=== PATIENT | female | born 1965 | race Caucasian/White ===

== ENCOUNTER 2018-07-11 18:17 | Observation (INO) | payer BC ==
[2018-07-11] MEDS ORDERED: Metoclopramide HCl 10 MG/2 ML VIAL ONE (19:11)
--- NOTE | 2018-07-11 19:19 | RAD ---
EXAM: Chest one view: HISTORY: Right-sided chest wall pain COMPARISON: 06/04/2018 FINDINGS: Monitor leads overlie the chest. Heart size: Within normal limits. The lungs: Clear of acute process. No evidence for pneumonia, pleural effusion, acute edema, or pneumothorax, or other significant acute process. IMPRESSION: No significant acute intrathoracic disease. Stable from prior study.
[2018-07-11 19:32] LABS: #Eosinphils 0.1 thou/uL (0.0-0.7); #Lymphocytes 1.3 thou/uL (1.20-3.40); #Monocytes 0.4 thou/uL (0.11-0.59); #Neutrophils 3.8 thou/uL (1.40-6.50); %Basophils 0.8 % (0.0-1.0); %Eosinophils 1.4 % (0.0-10.0); %Lymphocytes 23.6 % (21.0-51.0); %Monocytes 6.3 % (0.0-10.0); Hemoglobin 11.1 g/dL (12.0-16.0); Mean Corpuscular HGB CONC 32.6 g/dL (32.0-36.0); Mean Corpuscular Hemoglobin 27.9 pg (27.0-31.0); Mean Corpuscular Volume 85.7 fL (78.0-98.0); Mean Platelet Volume 7.9 fL (7.4-10.4); Platelet Count 193 thou/uL (130-400); RBC Distribution Width 13.4 % (11.5-14.5); Red Blood Cell (RBC) Count 3.97 mill/uL (4.20-5.40); White Blood Cell (WBC) Count 5.5 thou/uL (4.8-10.8)
--- NOTE | 2018-07-11 19:43 | CT ---
EXAM: Brain CTWithout contrast: HISTORY: Seizure COMPARISON: None FINDINGS: No focal mass or midline shift. No intra or extra-axial hemorrhage. Sinuses and mastoids are clear of acute process. IMPRESSION: No mass or bleed or other significant acute intracranial process.
[2018-07-11 20:00] LABS: ALT (SGPT) Less than 7 U/L (8-55); AST (SGOT) 10 U/L (5-34); Albumin 2.3 g/dL (3.5-5.0); Alkaline Phosphatase 28 U/L (40-150); Anion Gap 6 mmol/L (10-20); BUN (Urea Nitrogen) 8 mg/dL (9.8-20.1); Bilirubin, Total 0.2 mg/dL (0.2-1.2); CK (CPK) 103 U/L (29-168); Calc. Creatinine Clearance 0 mL/min (70-130); Carbon Dioxide 16 mmol/L (22-29); Chloride 123 mmol/L (98-107); Estimated GFR-MDRD Greater than 90; Globulin 1.3 g/dL (2.4-3.5); Glucose 65 mg/dL (70-105); Lipase 18 U/L (8-78); Protein, Total 3.6 g/dL (6.0-8.3); Sodium 143 mmol/L (136-145)
[2018-07-11 20:10] LABS: Calcium 5.1 mg/dL (7.8-10.44); Potassium 2.4 mmol/L (3.5-5.1)
[2018-07-11] MEDS ORDERED: Potassium Chloride 20 MEQ TAB ONE (20:12)
[2018-07-11] MEDS ORDERED: D5 1/2 NS w/20 mEq KCL 1,000 ML IV SCH (20:15)
[2018-07-11 20:31] LABS: Phosphorus 2.1 mg/dL (2.3-4.7)
[2018-07-11 22:24] LABS: ALT (SGPT) 11 U/L (8-55); AST (SGOT) 12 U/L (5-34); Albumin 4.4 g/dL (3.5-5.0); Alkaline Phosphatase 55 U/L (40-150); Anion Gap 13 mmol/L (10-20); BUN (Urea Nitrogen) 10 mg/dL (9.8-20.1); Bilirubin, Total 0.6 mg/dL (0.2-1.2); Calc. Creatinine Clearance 0 mL/min (70-130); Calcium 9.6 mg/dL (7.8-10.44); Carbon Dioxide 25 mmol/L (22-29); Chloride 108 mmol/L (98-107); Estimated GFR-MDRD 87; Globulin 2.8 g/dL (2.4-3.5); Glucose 99 mg/dL (70-105); Phosphorus 3.1 mg/dL (2.3-4.7); Potassium 4.3 mmol/L (3.5-5.1); Protein, Total 7.2 g/dL (6.0-8.3); Sodium 142 mmol/L (136-145)
[2018-07-11 23:45] LABS: Troponin I 0.012 ng/mL (< 0.028)
[2018-07-12] MEDS ORDERED: Ondansetron ODT 4 MG TAB SL PRN (00:16)
[2018-07-12] MEDS ORDERED: Ondansetron PF 4 MG/2 ML Vial IVP PRN (00:16)
[2018-07-12 01:09] VITALS: BMI 23.6
[2018-07-12] MEDS ORDERED: Lorazepam 2 MG/ML VIAL SLOW IVP PRN (01:13)
[2018-07-12 03:06] LABS: Troponin I 0.011 ng/mL (< 0.028)
[2018-07-12 05:09] LABS: #Basophils 0.1 thou/uL (0.0-0.2); #Eosinphils 0.2 thou/uL (0.0-0.7); #Lymphocytes 2.1 thou/uL (1.20-3.40); #Monocytes 0.9 thou/uL (0.11-0.59); #Neutrophils 5.2 thou/uL (1.40-6.50); %Basophils 0.7 % (0.0-1.0); %Eosinophils 1.9 % (0.0-10.0); %Monocytes 10.3 % (0.0-10.0); %Neutrophils 62.1 % (42.0-75.0); Hemoglobin 12.8 g/dL (12.0-16.0); Mean Corpuscular HGB CONC 33.1 g/dL (32.0-36.0); Mean Corpuscular Hemoglobin 28.2 pg (27.0-31.0); Mean Corpuscular Volume 85.1 fL (78.0-98.0); Mean Platelet Volume 8.3 fL (7.4-10.4); Platelet Count 223 thou/uL (130-400); RBC Distribution Width 13.5 % (11.5-14.5); Red Blood Cell (RBC) Count 4.55 mill/uL (4.20-5.40); White Blood Cell (WBC) Count 8.4 thou/uL (4.8-10.8)
[2018-07-12 05:23] LABS: Anion Gap 12 mmol/L (10-20); BUN (Urea Nitrogen) 10 mg/dL (9.8-20.1); Calc. Creatinine Clearance 98 mL/min (70-130); Calcium 9.1 mg/dL (7.8-10.44); Carbon Dioxide 22 mmol/L (22-29); Chloride 110 mmol/L (98-107); Estimated GFR-MDRD Greater than 90; Glucose 86 mg/dL (70-105); Potassium 3.8 mmol/L (3.5-5.1); Sodium 140 mmol/L (136-145)
[2018-07-12] MEDS ORDERED: levETIRAcetam 500 MG TAB PO SCH ×2 (09:45→21:00)
--- NOTE | 2018-07-12 10:38 | HP ---
REASON FOR ADMISSION: New onset seizure. HISTORY OF PRESENT ILLNESS: Mrs. Olivo is a 53-year-old woman who was brought in to the emergency department yesterday after experiencing a witnessed seizure while at work. The patient does not recall events leading up to her seizure, but states she remembers being at work. 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 The patient is unsure of the length of time the seizure lasted, but is aware that she had been witnessed to fall out of the chair and while lying on the floor, was biting her tongue repeatedly. She is unsure if she experienced any twitching, stiffness, or convulsions of her body. She is unsure how long her postictal state lasted. Denies any nausea or vomiting afterwards according to informations obtained from her coworker who visited last night. The patient states she is not known to have a history of seizures. She is feeling well today and back to her baseline as per patient. Per ED notes, Paramedics found her in postictal state, and she was unresponsive, not oriented to person or place. She was brought in to the ED and upon arrival, was alert and oriented x2, able to answer questions. Her vital signs were normal in the ER. She was noted to have a slight abrasion and swelling to the right lower lip. Laboratory studies were done noting hypokalemia at 2.4 and hypocalcemia of 5.1. She had a 12-lead ECG that showed sinus tachycardia with incomplete left bundle-branch block and ST depression with inversion of T-waves on the lateral leads. ST depression was also noted in the lateral leads. Her potassium was replaced in the ER. The patient was admitted for further workup and management. Of note, she also underwent a chest x-ray in the ER that was negative, and a CT scan of her head, which was unremarkable. The patient was seen in [place] yesterday by her lathe tender for a cardiac stress test to address chest pain and shortness of breath she has been experiencing intermittently for the last few months. She does not have results of this. She states she was diagnosed with takotsubo in the past. In her 30s, she underwent mitral valve repair and is scheduled to undergo an echocardiogram. REVIEW OF SYSTEMS: The patient denies having any issues with headaches or loss of vision. Denies having any vision changes at this present time, but states she recently had her contacts changed due to experiencing moments of blurred vision while at work when looking at the computer screen. Denies any eye pain. Has not had any recent fevers, chills, or sweats. No sore throat or cold-like symptoms. She has had very good appetite and denies experiencing any nausea or vomiting. Denies any abdominal pain or cramping. Has had very normal bowel movements and has not noted any blood in her stool. Denies having any urinary symptoms; however, today has noted frequent urination and is unsure if this was due to fluids given in the ER. She reports having issues with shortness of breath which has been ongoing for the last year associated with intermittent chest pain that occurs sporadically. It tends to happen following a period of activity; however, she states there are moments when she is very active, such as walking 5 miles and does not experience any pain with it. Then, might walk across a parking lot to the store and once inside, then experiences pain, described as tightness in her chest and shortness of breath. She states they can last an hour or be intermittent for a full day, and she does not take anything to help with pain. It tends to settle on its own. She denies any radiation of her pain to her arms or upper jaw. Denies any associated diaphoresis or nausea. Apart from this, the patient has experienced episodes of "an odd sensation" where it feels like something is closing in on her, but is not quite able to describe. She denies any actual tunnel vision or vision disturbances when this happens. She states this is immediately followed by severe nausea causing her to hold her mouth close to avoid vomiting, and this quickly settles after a couple of minutes. She has noted this tends to occur mostly while she was at work, but can happen sporadically. She also describes episodes of intense hypersomnolence without any other associated symptoms. It can happen any time of the day, most noticeable when driving, which causes her to last puller and walk around her car. When at home, she has moments where she falls asleep without realizing it or has intense need to lay down to avoid falling. She denies any mental status changes or paralysis. No paresthesias. No sensory changes. Has not had any rash or skin changes. No pain. No falls or trauma. The patient has not experienced any wheezing. No lower extremity edema. PAST MEDICAL HISTORY: History of takotsubo. PAST SURGICAL HISTORY: Mitral valve repair in her 30s. SOCIAL HISTORY: The patient lives at home and fully independent. Denies any tobacco use. No alcohol use or illicit drug use. FAMILY HISTORY: The patient has a very strong family history of heart disease in her family, but unable to provide details. ALLERGIES: NO KNOWN DRUG ALLERGIES. CURRENT MEDICATIONS: None. PHYSICAL EXAMINATION: GENERAL: The patient appears thin, well developed, and in no acute distress. VITAL SIGNS: Temperature 98.1, pulse 80, respirations 16, O2 saturation 97% on room air, and blood pressure 126/78. HEENT: Normocephalic and atraumatic. Pupils are equal, round, reactive to light. Extraocular movements normal without any nystagmus present. Visual delacruz intact. Oropharynx is clear of any sores or lesions or erythema. The patient was noted to have a small growth on the left lateral side of her tongue, which she states is long-standing and unchanged. No bleeding. No sores. No abnormal color. She has a small abrasion to the left inner lower lip. No active bleeding. No swelling. NECK: Supple without lymphadenopathy. No tenderness. Full range of motion. HEART: Normal S1, S2. LUNGS: Clear to auscultation bilaterally without any wheezes, rales, or rhonchi. ABDOMEN: Soft, nontender, nondistended. Normoactive bowel sounds present. No guarding or rigidity. No renal angle tenderness. EXTREMITIES: No edema present. Full range of motion with power 5/5 in all limbs. Pedal pulses present and equal bilaterally. NEUROLOGIC: Alert and oriented x3. No neuro deficits. Cranial nerves 2 through 12 intact. Facial sensation and movements normal. No tongue deviation. No cerebellar findings. LABORATORY DATA: White blood count 8.4, hemoglobin 12.8, hematocrit 38.7, and platelets 223. Sodium 140; potassium today is 3.8, improved from 2.4; chloride 110; carbon dioxide 22; anion gap 12; BUN 10; creatinine 0.66; GFR greater than 90; blood glucose 86; and calcium 9.1, improved from 5.1. Troponin negative x3. TSH 3.6778. Prolactin done on initial presentation was normal at 21.42. IMAGING DATA: 1. Chest x-ray with no acute intrathoracic abnormalities. 2. CT brain; no abnormal findings. No mass or bleed or other significant acute intracranial process. IMPRESSION AND PLAN: Ms. Olivo is a very pleasant 53-year-old woman who is being admitted for management of the following; 1. New onset seizure, weakness. The patient had this episode while at work and describes unusual episodes as mentioned above that seem to be a possible auras. She has undergone a CT of the brain that was normal. We will request an MRI of the brain and place a consult to Neurology. We will also obtain urinalysis and urine drug screen. 2. Hypersomnolence. The patient potentially experiencing the symptoms associated with narcolepsy, although she only falls fully asleep when at home that she is aware of. May require sleep study as an outpatient. Unclear if this is associated with the seizure episode that she had yesterday. 3. Chest pain and shortness of breath. The patient had a cardiac stress done yesterday and is being followed by Cardiology in [place]. She had abnormal EKG changes noted in the ER with ST depression and T-wave inversion in the lateral leads as well as a left bundle-branch block. Troponins were negative. The patient is without any active chest pain. We will discuss with Dr. Dennison if echocardiogram indicated given history of intermittent shortness of breath, as well as cardiac history/previous mitral valve repair. 4. Gastrointestinal prophylaxis. 5. Deep venous thrombosis prophylaxis with mechanical SCDs. 6. Full code status. Her surrogate decision makers would be her sister, Valentina Mullen, and her daughter, Leena Olivo. The patient's case was discussed with Dr. Dennison who agrees upon care as described above. Job ID: [id number]
[2018-07-12] MEDS ORDERED: Gadobenate Dimeglumine 529 MG/1 ML (20ML VIAL) ONE (10:47)
--- NOTE | 2018-07-12 12:16 | MRI ---
MRI Brain W WO Con: 07/12/2018 9:10 AM CLINICAL HISTORY: New onset seizure one day ago.. COMPARISON: CT head 07/11/2018. FINDINGS: Extra axial spaces: Normal in size and morphology for the patient's age. Ventricular system: Normal in size and morphology for the patient's age. Basal cisterns: Normal. Cerebral parenchyma: Scattered increased T2-weighted signal abnormalities are seen within the region of the periventricular white matter demonstrating corresponding decreased T1 and FLAIR signal intensity and are be related to mild dilated perivascular spaces. There is no evidence of an acute in farction. No abnormal signal intensity is seen in the region of the hippocampal formations bilaterally which demonstrate symmetric and normal morphology bilaterally. There is a focus of increa sed FLAIR T2-weighted signal intensity seen within the subcortical white matter in the left parietal lobe which is of uncertain etiology but of doubtful clinical significance. There is a small focus of susceptibility artifact on gradient echo images seen within the lateral asp ect of the inferior left basal ganglia which demonstrates a tiny punctate focus of enhancement on postcontrast images. This likely represents a small vascular malformation measuring approximately 4 m m. Midline shift: None. Cerebellum: Normal. Brainstem: Normal. Paranasal sinuses:Mild mucosal thickening is present in the right maxillary antrum. Minimal mastoid e ffusions are seen on the right IMPRESSION:No acute intracranial abnormality.
[2018-07-12 15:41] VITALS: BP 127/71; TEMP 97.8
--- NOTE | 2018-07-12 16:19 | CON ---
DATE OF CONSULTATION: 07/12/2018 CONSULTING PHYSICIAN: Hospitalist Service. IMPRESSION: New-onset seizure with prior prodromes of multiple auras. PLAN: 1. MRI of the brain with contrast. 2. Keppra 500 mg twice a day. 3. Office followup. HISTORY OF PRESENT ILLNESS: Ms. Olivo is a 53-year-old woman with a past history of mitral valve disease. She was at work when she suddenly lost consciousness. Witnesses report that she had a tonic-clonic seizure. She has no memory of the events. The next memory that she has is waking up in the emergency room. She had a CT of the brain done, which is unremarkable. Her lab work was also unremarkable. Prior to this, she has had multiple episodes, where she has a sudden uncomfortable wave of sensation associated with some nausea. This may last about 5 seconds or more. None of these were followed by any lapses of awareness. She denies any past history of head injury, meningitis, or encephalitis. She has never had any focal neurologic symptoms prior to this. PAST MEDICAL HISTORY: Mitral valve disease. PAST SURGICAL HISTORY: Mitral valve repair. FAMILY HISTORY: Astrocytoma. ALLERGIES: NONE REPORTED. SOCIAL HISTORY: Unremarkable. REVIEW OF SYSTEMS: A 10-system review of systems is otherwise negative. PHYSICAL EXAMINATION: VITAL SIGNS: Stable. She has been afebrile. HEENT: Pupils are equal and reactive. Conjunctivae are clear. Oropharynx is clear. NECK: Supple. No lymphadenopathy. EXTREMITIES: No cyanosis, clubbing, or edema. NEUROLOGIC: She is alert and appropriate. Her speech is fluent and clear. Cranial nerves are intact. Motor exam shows good strength bilaterally. There is no fix or drift. Sensation is intact to light touch. She can walk independently. No abnormal movements are seen. SUMMARY: This is a middle-aged woman with new-onset of seizure activity with suggestive features of a focal onset. MRI to rule out focal lesion would be appropriate. I would go ahead and start her on Keppra, given the multiple events prior to admission. I will be happy to follow up with her in the office. Job ID: [id number]
[2018-07-12 17:20] LABS: Bilirubin Negative (Negative); Blood, Urine Negative (Negative); Clarity CLOUDY (Clear); Glucose, Urine (Dipstick) Negative (Negative); Leukocyte Negative (Negative); Nitrite Negative (Negative); Protein, Urine (Dipstick) Negative (Neg-Trace); Specific Gravity, Urine 1.023 (1.002-1.036); Urobilinogen 0.2 mg/dL (0.2-1.0)
[2018-07-12 17:22] LABS: Bacteria/HPF None Seen HPF (None Seen); Hyaline Casts/LPF 0-3 HYALINE CAST LPF (0-3 Hyaline); Pathc Cast-AUWi Flag 0.13 (0-2.49); RBC/HPF 0-3 HPF (0-3); Squamous Epithelial 0-3 HPF (0-3); WBC/HPF 0-3 HPF (0-3)
[2018-07-12 17:36] LABS: Urine Culture Reflex No No
[2018-07-12 17:37] LABS: Amphetamine Not Detected (NotDetected); Barbiturates Screen Not Detected (NotDetected); Benzodiazepine Screen Not Detected (NotDetected); Cocaine Metabolite Screen Not Detected (NotDetected); Medtox Control Line Valid? VALID (VALID); Medtox Reader # READER 4; Methadone Not Detected (NotDetected); Methamphetamine Not Detected (NotDetected); Opiate Screen Not Detected (NotDetected); Oxycodone Screen Not Detected (NotDetected); Phencyclidine (PCP) Not Detected (NotDetected); THC/Cannabinoid Screen Not Detected (NotDetected); Tricyclic Screen Not Detected (NotDetected)
== END 2018-07-12 19:25 | disposition home or self-care (01) ==
LOC: ERS 18:17 → 2SE 23:55
PROVIDERS: ADMIT Internal Medicine; ATTEND Internal Medicine
DX: R56.9 Unspecified convulsions (principal); R53.1 Weakness; G47.10 Hypersomnia, unspecified; Z98.890 Other specified postprocedural states
CPT/HCPCS: 36415; 36416; 70450; 70553; 71045; 80048; 80053; 80306; 81001; 82306; 82550; 83690; 83735; 83970; 84100; 84146; 84443; 84484; 85025; 93005; 96365; A9577; G0378; J2765